=== PATIENT | male | born 1965 | race Caucasian/White ===

== ENCOUNTER 2018-05-02 08:40 | Emergency (ER) | END 2018-05-02 15:04 | disposition home or self-care (01) ==

== ENCOUNTER 2018-06-19 17:07 | Emergency (ER) | END 2018-06-19 21:37 | disposition home or self-care (01) ==

== ENCOUNTER 2018-09-25 00:34 | Emergency (ER) | payer OTHER ==
[~2018-09-25] VITALS: Ht 172.7 cm; Wt 101.5 kg
[2018-09-25 01:03] VITALS: Ht 172.7 cm; Wt 101.5 kg
--- NOTE | 2018-09-25 03:39 | ERD ---
ER Documentation Chief Complaint Chief Complaint had a seizure 1 hr ago, shakey now;hx ETOH w/drawal,needs detox referral HPI Patient is a 52-year-old male with coronary disease, hypertension, and alcohol abuse who presents saying "I do not want to drink anymore". He says when I do not drink ago in the withdrawals. He said that he had a [place] on a train [place] to [place] emergency department. He said that his last vodka drink was at 3 PM and he usually drinks 1 pint of vodka per day. He was told by his insurance company to come to the ER for detox. Upon review of old medical records this is the patient's third visit to the ER since April 2018. Review of the emergency department information exchange system shows visits to 5 separate emergency departments. He does not know the name of his primary doctor. ROS All systems reviewed and are negative except as per history of present illness. Allergies Allergies: Coded Allergies: No Known Allergy (Unverified , 06/19/18) PMhx/Soc History of Surgery: Yes (stent placement) Anesthesia Reaction: No Hx Neurological Disorder: No Hx Respiratory Disorders: No Hx Cardiac Disorders: Yes (htn,heart attack) Hx Psychiatric Problems: No Hx Miscellaneous Medical Probl: No Hx Alcohol Use: Yes Hx Substance Use: No Hx Tobacco Use: Yes FmHx Family History: No diabetes Physical Exam Vitals Vital Signs Date Temp Pulse Resp B/P (MAP) Pulse Ox O2 O2 Flow FiO2 Time Delivery Rate 09/25/18 97.8 97 18 122/82 95 01:03 (95) Physical Exam Const: Shaky Head: Atraumatic Eyes: Normal Conjunctiva ENT: Normal External Ears, Nose and Mouth. Neck: Full range of motion. No meningismus. Resp: Clear to auscultation bilaterally Cardio: Regular rate and rhythm, no murmurs Abd: Soft, non tender, non distended. Normal bowel sounds Skin: No petechiae or rashes Back: No midline or flank tenderness Ext: No cyanosis, or edema Neur: Awake and alert, resting tremor, answering all questions appropriately Psych: Normal Mood and Affect Results 24 hrs Current Medications Medications Dose Sig/Domingo Start Time Status Last (Trade) Ordered Route PRN Stop Time Admin Dose Reason Admin Lorazepam 1 mg ONCE ONCE 09/25/18 (Ativan) PO 04:00 09/25/18 04:01 Procedures/MDM Patient is a 52-year-old male who presents with what appears to be acute alcohol withdrawal and acute alcohol withdrawal seizure. I do not believe he is in true delirium tremens at this time as he has normal vital signs and is neurologically intact and answering questions appropriately. The patient will be given Ativan 1 mg by mouth to prevent further seizure and to help with his shaking and will be discharged. I told him that he would need to follow-up with an outpatient detox center in the morning as we do not have detox here at the hospital. The patient can return for any worsening symptoms. Departure Diagnosis: Primary Impression: Alcohol withdrawal seizure Complication of substance-induced condition: uncomplicated Qualified Codes: F10.230 - Alcohol dependence with withdrawal, uncomplicated Additional Impression: Alcohol withdrawal Complication of substance-induced condition: uncomplicated Qualified Codes: F10.230 - Alcohol dependence with withdrawal, uncomplicated Condition: Fair Patient Instructions: Alcohol Withdrawal Referrals: Your doctor Additional Instructions: Follow up with an alcohol detox outpatient center in the morning. REAGAN COTO MD Sep 25, 2018 03:39
[2018-09-25 03:50] VITALS: BP 122/82; PULSE 87; RESP 18
[2018-09-25] MEDS ORDERED: LORAZEPAM 1 MG TAB PO ONE (04:00)
== END 2018-09-25 04:28 | disposition home or self-care (01) ==
LOC: E/R 00:34
DX: F10.230 Alcohol dependence with withdrawal, uncomplicated (principal); I10 Essential (primary) hypertension; Z87.891 Personal history of nicotine dependence; Z98.61 Coronary angioplasty status
CPT/HCPCS: Z7502; Z7610; 99283